=== PATIENT | female | born 1970 | race Caucasian/White ===

== ENCOUNTER 2020-12-22 14:16 | Emergency (ER) | payer SELFPAY ==
[2020-12-22 14:25] VITALS: BP 119/83; PULSE 95; RESP 18; TEMP 36.9; O2SAT 98
[2020-12-22 14:35] VITALS: BP 119/83; PULSE 95; RESP 18; TEMP 36.9; O2SAT 98
--- NOTE | 2020-12-22 15:24 | ED.GENADULT ---
HPI - General Adult General Chief complaint: Upper Respiratory Infection Stated complaint: sinus infection and irritable bowel Time Seen by Provider: 12/22/20 14:51 Source: patient and RN notes reviewed Mode of arrival: ambulatory Limitations: no limitations History of Present Illness HPI narrative: Patient presents today complaining of exacerbation of her chronic sinus issues x19 years that have worsened over the last several days to include postnasal drip, nasal congestion, frontal headache and pressure. Denies sore throat, rhinorrhea, sneezing, cough. She has been using a Swatara pot, Mucinex, Tylenol Sinus without much relief. History of mastoiditis in 2005 that led to several teeth being pulled. Related Data Home Medications Medication Instructions Recorded Confirmed norethindrone (contraceptive) 0.35 mg PO DAILY 12/22/20 12/22/20 Allergies Allergy/AdvReac Type Severity Reaction Status Date / Time bee venom protein (honey bee) Allergy Swelling Verified 12/22/20 14:34 [bees] Review of Systems Review of Systems: Narrative: CONSTITUTIONAL: Denies body aches, fever, chills, or sweats. EYES: Denies visual changes, redness, or discharge. ENT: Denies rhinorrhea, sore throat, or otalgia. + Postnasal drip CARDIOVASCULAR: Denies chest pain, palpitations, or edema. RESPIRATORY: Denies cough or dyspnea. GASTROINTESTINAL: Denies abdominal pain, nausea, vomiting, or diarrhea. GENITOURINARY: Denies dysuria or hematuria. SKIN: Denies rash, itching, or wounds. MUSCULOSKELETAL: Denies back pain, joint pain, or myalgia. NEUROLOGIC: Denies numbness, tingling, or weakness. + Frontal headache PSYCH: Denies depression or anxiety. [facility] Past Medical History Medical History (Updated 12/23/20 @ 08:10 by Silva Uriostegui, [facility], ) Chronic sinusitis History of mastoiditis Comments At time of signature, I have reviewed and agree with nursing past medical, surgical, social and family history unless otherwise noted. Please see nursing chart for further information. There is no relevant family history pertinent to the presenting complaint Exam Narrative: Exam Narrative: GENERAL: Well-appearing, well-nourished, and in no acute distress. HEAD: Normocephalic, atraumatic. EYES: EOMI. No redness or drainage. Conjunctivae normal. ENT: Mucous membranes pink and moist. Nares congested. Bilateral nasal turbinates erythematous and edematous. Tenderness to the bilateral frontal and maxillary sinuses with palpation. Purulent nasal discharge. TMs normal bilaterally. Throat normal. Uvula midline. NECK: Normal AROM. Supple. Bilateral anterior cervical chain lymphadenopathy. CHEST: No respiratory distress. Clear to auscultation. HEART: Regular rate and rhythm. No murmur appreciated. Normal peripheral pulses. EXTREMITIES: Normal range of motion. No edema. SKIN: Warm, dry, no rash. Capillary refill normal. Normal skin turgor. NEURO: No focal deficits. Alert and oriented x3. Gait steady. PSYCH: Normal affect. No signs of depression or anxiety. Course Vital Signs Vital signs: Vital Signs Temperature 98.4 F 12/22/20 14:25 Pulse Rate 95 12/22/20 14:25 Respiratory Rate 18 12/22/20 14:25 Blood Pressure 119/83 12/22/20 14:25 Pulse Oximetry 98 12/22/20 14:25 Temperature 98.4 F 12/22/20 14:35 Pulse Rate 95 12/22/20 14:35 Respiratory Rate 18 12/22/20 14:35 Blood Pressure 119/83 12/22/20 14:35 Pulse Oximetry 98 12/22/20 14:35 Reviewed. Pt has been instructed to follow up with her PCP regarding her elevated blood pressure today. Medical Decision Making Differential Diagnosis Differential Diagnosis: Sinusitis, URI, rhinitis, seasonal allergies, AOM Vital Signs Vital Signs: Vital Signs Temperature 98.4 F 12/22/20 14:25 Pulse Rate 95 12/22/20 14:25 Respiratory Rate 18 12/22/20 14:25 Blood Pressure 119/83 12/22/20 14:25 Pulse Oximetry 98 12/22/20 14:25 Temperature 98.4 F
== END 2020-12-22 15:29 | disposition home or self-care (01) ==
PROVIDERS: Emergency Provider Nurse Practitioner
DX: J32.9 Chronic sinusitis, unspecified (principal)
CPT/HCPCS: 99213; G0463